=== PATIENT | female | born 1990 | race Caucasian/White ===

== ENCOUNTER 2017-03-09 22:04 | Emergency (ER) | payer OTHER ==
[~2017-03-09] VITALS: Ht 157.5 cm; Wt 54.9 kg
== END 2017-03-10 05:17 | disposition home or self-care (01) ==
LOC: ER 22:04
DX: O20.0 Threatened abortion (principal); Z34.81 Encounter for supervision of other normal pregnancy, first trimester

== ENCOUNTER 2017-09-21 06:20 | Inpatient (IN) | payer OTHER ==
[~2017-09-21] VITALS: Ht 157.5 cm; Wt 64.9 kg
== END 2017-09-23 13:21 | DRG 775 ==
LOC: LDR 06:20 → OB/GYN 06:20 → LDR 09:11 → OB/GYN 09-22 11:05
PROC: 10E0XZZ Delivery of Products of Conception, External Approach (ICD-10-PCS; principal; 2017-09-21)
PROC: 0HQ9XZZ Repair Perineum Skin, External Approach (ICD-10-PCS; 2017-09-21)
PROC: 0W8NXZZ Division of Female Perineum, External Approach (ICD-10-PCS; 2017-09-21)
PROC: 4A1HXCZ Monitoring of Products of Conception, Cardiac Rate, External Approach (ICD-10-PCS; 2017-09-21)
DX: O70.0 First degree perineal laceration during delivery (principal); Z3A.38 38 weeks gestation of pregnancy; Z37.0 Single live birth